=== PATIENT | female | born 1990 | race Caucasian/White ===

== ENCOUNTER 2018-01-06 08:44 | Emergency (ER) | payer SELFPAY ==
[2018-01-06 08:45] VITALS: BP 111/75; PULSE 116; RESP 16; TEMP 36.2; O2SAT 97; BMI 26.0
--- NOTE | 2018-01-06 08:59 | ED.DCSUM_ITS ---
- ER Visit Summary Date of Service: 01/06/18 Chief Complaint: Abdominal pain History of Present Illness: The patient is a 27 F who presents with abdominal pain. Started 4 hours ago suddenly. She states she has sharp pains in her left lower quadrant that radiates up into her back. She has had nausea without vomiting. She denies diarrhea or constipation. Denies any urinary symptoms. Never had any abdominal surgeries before in the past. No fevers. She took nothing for this at home Physical Examination: Vital signs reviewed. HEENT exam unremarkable. Heart is regular rate and rhythm without murmurs. Lungs are clear to auscultation. Abdomen is soft with diffuse tenderness. No guarding or rebound tenderness. Extremities reveal no edema. Skin exam normal. Neurologic exam normal. Test Results: Labs are normal except for a white blood cell count of 12.7 Emergency Department Course and Treatment: Patient was initially given morphine and Zofran IV. She states that this is not helping. I attempted to get CAT scans of her abdomen but patient refused. She states that she cannot lay down and she cannot fucking do it. I informed her that to fully complete her evaluation these CAT scans may be necessary. She states that she still cannot and refused to do it. However, her blood work looks pretty unremarkable. I will give her Bentyl IM because she is still complaining of pain. The patient denies using any illicit drugs but the patient does have track sanders on her arms and neck. She was seen here previously for an overdose. This may make getting her pain controlled harder. At this point I will discharge the patient with Bentyl and Phenergan. She will follow-up with her PCP Treatment Plan: [] Disposition: Discharge Impression: Abdominal pain This note was generated with [employer] dictation software. It may contain incorrect words, spelling, and punctuation that were not noted in review of the chart prior to signing ED Disposition - Plan for ED Patient: Chief Complaint: Abd Pain Referrals: Care Physician,No Primary [Primary Care Provider] -
[2018-01-06] MEDS: 0.9% Normal Saline 1,000 ML 1000 ML IV (09:09)
[2018-01-06] MEDS: Ondansetron 4 MG/2 ML Vial IV (09:09)
[2018-01-06] MEDS: Morphine 4 MG/ML Syringe IV (09:09)
[2018-01-06 09:31] LABS: Absolute Lymphocyte Count 3.07 X10^3/ul (0.83-4.51); Absolute Neutrophil Count 8.4 X10^3/uL (2.0-7.7); Basophil# 0.07 X10^3/uL; Basophil% 0.6 % (0-1); Eosinophil# 0.25 X10^3/uL; Hematocrit 40.1 % (37-47); Lymphocyte # 3.07 X10^3/ul (4.0); Lymphocyte % 24.2 % (19-41); Mean Corp Hgb Conc 32.4 g/gl (32-36); Mean Corpuscular Hgb 27.2 pg (27.0-32.0); Mean Corpuscular Volume 83.9 fL (81-99); Mean Platelet Vol. 10.5 fl (6.2-12.0); Monocyte# 0.93 X10^3/uL; Monocyte% 7.3 % (0-10); Neutrophil # 8.36 X10^3/uL (2.7-7.7); Neutrophil % 65.7 % (47-70); Platelet Count 339 K/mm3 (150-450); RBC Distribution Width CV 12.8 % (11.6-14.6); RBC Distribution Width SD 38.9 fl (35.1-43.9); Red Blood Count 4.78 M/mm3 (4.2-5.4); White Blood Count 12.7 K/mm3 (4.4-11.0)
[2018-01-06 09:36] LABS: POSITIVE COUNT NO; POSITIVE DIFFERENTIAL NO; POSITIVE MORPHOLOGY NO
[2018-01-06 09:41] LABS: AST(SGOT) 14 U/L (15-37); Alanine Aminotransfer ALT/SGPT 20 U/L (13-56); Albumin, Serum 3.8 g/dL (3.2-5.0); Alkaline Phosphatase 78 U/L (45-117); Anion Gap 4 (5-15); BUN 12 mg/dL (7-18); BUN/Creat Ratio 16.6 RATIO (10-20); Calcium,Total 8.8 mg/dL (8.5-10.1); Chloride 104 mmol/L (98-107); Creatinine, Serum 0.72 mg/dL (0.55-1.02); EST Glomerular Filtration Rate 102 mL/min (>60); Est Glom Filt Rate - Afr Amer 124 mL/min (>60); Estimated Creatinine Clearance 97.09 ml/min; Globulin 3.9 g/dL (2.2-4.2); Glucose 105 mg/dL (74-106); Lipase 71 U/L (73-393); Potassium 3.6 mmol/L (3.5-5.1); Protein, Total 7.7 g/dL (6.4-8.2); Sodium Level 139 mmol/L (136-145)
[2018-01-06 10:03] LABS: Bacteria 0 SEEN /hpf (None Seen); Red Blood Cells-Urine 0 SEEN /hpf (0-5)
[2018-01-06 10:10] LABS: Internal QC Validated? YES +Cl - CLEAR BKGD; Pregnancy, Urine Negative Negative
[2018-01-06 10:26] LABS: Color, Urine Yellow (Yellow); Glucose, Dipstick Normal (Normal); Ketone-Dipstick 5 mg/dl (Negative); Leukocyte Esterase-Dipstick 25 /ul (Negative); Nitrite-Dipstick Negative (Negative); Occult Blood-Urine 10 /ul (Negative); Protein-Dipstick 15 mg/dl (Negative); Urine Bilirubin Dipstick Negative (Negative); Urine Clarity Clear (Clear); Urine Urobilinogen Normal (Normal)
[2018-01-06 10:32] LABS: Mucous, Urine 2+ /hpf (<or=2+); Squamous Epithelial Cells - UA 0-5 SEEN /hpf (5-10); White Blood Cells 0-5 SEEN /hpf (0-5)
--- NOTE | 2018-01-06 10:38 | ED.DEP ---
ED Disposition - Plan for ED Patient: Disposition: Home or Assisted Living Chief Complaint: Abd Pain Instructions: ED Abdominal Pain Unkn Cause Prescriptions: proMETHazine tablet [Phenergan] 25 mg PO Q6H PRN PRN #10 tab PRN Reason: Nausea Dicyclomine HCl [Bentyl] 20 mg PO TIDAC #20 cap Referrals: Care Physician,No Primary [Primary Care Provider] -
[2018-01-06] MEDS: Dicyclomine 20 MG/2 ML Vial IM (10:49)
[2018-01-06 10:57] VITALS: BP 107/57; PULSE 64; RESP 18; O2SAT 99
--- NOTE | 2018-01-06 10:59 | ED.RN ---
PT REFUSED CT, STATES NO FUCKING WAY I'M GONG TO DO THIS BUT WAS ABLE TO AMBULATE FROM BED TO SCANNER, AND BACK TO BED WITHOUT DIFFICULTLY, PER SHAHID. EACH TIME THIS NURSE WALKED IN THE ROOM, PT WAS RESTING COMFORTABLY WITHOUT DISTRESS. PT NEVER VOICED TO THIS NURSE OR TO THE DOCTOR THAT HER LADY CELY WAS BOTHERING HER, WHICH SHE COMPLAINED ABOUT UPON DISCHARGE. PT WAS RUDE AND DEMANDING TO STAFF, CUSSING AT STAFF AND CALLED THIS RN A BITCH. ADVISED PT THAT WE COULD NOT DIAGNOSE HER WITHOUT A CT SCAN. PT STILL REFUSED TO GO TO CT. MEDICATED PT WITH BENTYL. GAVE PT DISCHARGE INSTRUCTIONS. PT AMBULATED WITHOUT DIFFICULTY OUT OF DEPARTMENT. CALLED PT'S SISTER FOR RIDE HOME.
[2018-01-06 11:05] VITALS: BP 107/57; PULSE 64; RESP 18; O2SAT 99
== END 2018-01-06 11:05 | disposition home or self-care (01) ==
PROVIDERS: Emergency Provider Emergency Medicine
DX: R10.9 Unspecified abdominal pain (principal); R11.0 Nausea; Z72.0 Tobacco use
CPT/HCPCS: 80053; 81001; 81025; 83690; 85025; 96361; 96372; 96374; 96375; 99284; J7030; J2405

== ENCOUNTER 2018-06-22 23:08 | Emergency (ER) | payer MEDICAID, SELFPAY ==
[2018-06-22 23:09] VITALS: BP 107/75; PULSE 125; RESP 20; TEMP 36.9; O2SAT 100; BMI 25.7
--- NOTE | 2018-06-22 23:26 | ED.RN ---
PT WALKED OUT OF THE ROOM AFTER DR MILLER LEFT THE ROOM.
--- NOTE | 2018-06-22 23:30 | ED.DCSUM_ITS ---
- ER Visit Summary Date of Service: 06/22/18 Chief Complaint: Rash History of Present Illness: The patient is a 28 F who presents with a rash. It is been present for months. States she has [place] tree mites. She has noticed an itching rash with red scabbed lesions particularly over the backs of both hands as well as her face. She states that over the last couple of months she is intermittently had vomiting and subjective fevers no documented fever. She denies any current chest pain shortness of breath nausea. She does admit to methamphetamine use. Physical Examination: Heart rate 125 vitals otherwise normal Patient has increased motor activity shifting often in bed picking at her hands Heart is regular rhythm tachycardia Lungs are clear Abdomen soft She has a rash which appears consistent with to her face chest and the backs of both hands with some open wounds and scabbed lesions. No petechiae no purpura no cellulitis Test Results: Not indicated Emergency Department Course and Treatment: I do not believe her rash is consistent with a parasitic infection. I believe this is more likely related to skin picking related to formication with methamphetamine abuse. She was counseled on cessation. She was also advised on supportive care should this be mites including histamines and topical hydrocortisone although I feel this is less likely. She requested testing to see if this was mites. I explained that this is not something I would be able to do here or have available. Patient discharged. Treatment Plan: [] Disposition: Discharge Impression: Methamphetamine abuse Bilateral hand wounds Rash This note was generated with [employer] dictation software. It may contain incorrect words, spelling, and punctuation that were not noted in review of the chart prior to signing ED Disposition - Plan for ED Patient: Chief Complaint: Itching Referrals: Care Physician,No Primary [Primary Care Provider] -
--- NOTE | 2018-06-22 23:30 | ED.DEP ---
ED Disposition - Plan for ED Patient: Chief Complaint: Itching Instructions: ED Drug Abuse General Referrals: Care Physician,No Primary [Primary Care Provider] -
--- OUTSIDE RECORDS SUMMARY | 2018-08-27 08:53 | XMS RPT_ITS ---
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 [facility] [id number] Number: [address] [id number], [place] [id number] [id number], [place] [address]Tya: (330) Date:2018-06-08 [address]Obt: (HP) [id number] Name:X[address] (HP)Tel: [phone]) [address], [place] [address] (WP) [phone]: 02/14/2018 [facility]: [facility] MEDICAIDPolicy [id number] Repository [address] Number: [address] [id number], [place] [id number] [id number], [place] [address]Amw: (330) Date:2018-01-12 [address]23[address]Zva: (HP) [id number] Name:[address] (HP)Tel: [phone]) [address], [place] [address] (WP) [phone]: 01/12/2018 [facility]:MEDICAID OF [place]DOB: [facility] Number: [id number] [id number] [id number], [place] Date:2018-01-12 - EAS14[place], [place] [address]Sck: [phone] [phone]: (HP) Name:ZE [phone] [address]Jqcfbchw, [place] ()Tel: [phone]: (WP) [phone] 01/08/2018 LACY D Primary [facility] MEDICAIDPolicy [id number] Number: [address] [id number], [place] [id number] [id number] [place] [address]Ees: (330) Date:2016-12-17 4[address]Jkb: (HP) [id number] 2014 Name:JUANO Box ()Tel: [phone], [place] [address] (WP) [phone]: 01/06/2018 Lacy D Primary NOT GIVEN[address] Insurance:SELF PAY Hospital Main INSURANCEPolicy Repository [facility], Number: [place] [address]Xxe: Date:2018-01-06 (HP) 11/22/2017 LACY D Primary LACY D [place] [address] Insurance:MEDICAID BENTLEYDOB: [facility] [id number] Center Repository [place], [place] ELIGPolicy Number: [address] [id number]: (374) [id number] [place], [place] [address] () Date: [address]Swq: ()
== END 2018-06-22 23:45 | disposition home or self-care (01) ==
LOC: ED 23:42
PROVIDERS: Emergency Provider Emergency Medicine
DX: R21 Rash and other nonspecific skin eruption (principal); F15.90 Other stimulant use, unspecified, uncomplicated; Z86.19 Personal history of other infectious and parasitic diseases
CPT/HCPCS: 99281

== ENCOUNTER 2018-11-30 22:37 | Emergency (ER) | payer MEDICAID, SELFPAY ==
[2018-11-30 22:37] VITALS: BP 103/63; PULSE 103; RESP 18; TEMP 36.2; O2SAT 100; BMI 26.5
[2018-11-30 23:06] LABS: Mucous, Urine 0 SEEN /hpf (<or=2+); Red Blood Cells-Urine 0 SEEN /hpf (0-5); Squamous Epithelial Cells - UA 0 SEEN /hpf (5-10)
[2018-11-30 23:10] LABS: Color, Urine Yellow (Yellow); Glucose, Dipstick Normal (Normal); Ketone-Dipstick 5 mg/dl (Negative); Leukocyte Esterase-Dipstick 500 /ul (Negative); Nitrite-Dipstick Positive (Negative); Occult Blood-Urine 150 /ul (Negative); Protein-Dipstick 100 mg/dl (Negative); Specific Gravity, Urine 1.025 (1.002-1.030); Urine Clarity Cloudy (Clear); Urine Urobilinogen 1 mg/dl (Normal)
[2018-11-30 23:11] LABS: Urine Bilirubin Dipstick 1 mg/dL (Negative)
[2018-11-30 23:17] LABS: White Blood Cells >100 SEEN /hpf (0-5)
[2018-11-30 23:18] LABS: Bacteria 3+ /hpf (None Seen)
[2018-11-30 23:30] LABS: Internal QC Validated? YES +Cl - CLEAR BKGD; Pregnancy, Urine Negative Negative
--- NOTE | 2018-11-30 23:37 | ED.DCSUM_ITS ---
- ER Visit Summary Date of Service: 11/30/18 Chief Complaint: Dysuria, left ear pain History of Present Illness: The patient is a 28 F who has dysuria and left ear pain. Started 2 weeks ago. She has UTIs about twice a year and this feels like another one. No fevers or abdominal pain. She has pain in the left ear as well. She has noted some drainage coming from it as well. Physical Examination: Vital signs reviewed. HEENT exam reveals TMs are clear bilaterally. The left canal is red and swollen. Heart is regular. Lungs are clear. Abdomen soft. Neurologic exam normal. Test Results: Urine shows a UTI. hCG negative Emergency Department Course and Treatment: The patient does have evidence of external otitis. He will be treated with Cortisporin. Bactrim for UTI. Follow-up with PCP Treatment Plan: [] Disposition: Discharge Impression: UTI, left external otitis This note was generated with [employer] dictation software. It may contain incorrect words, spelling, and punctuation that were not noted in review of the chart prior to signing ED Disposition - Plan for ED Patient: Referrals: Care Physician,No Primary [Primary Care Provider] -
--- NOTE | 2018-11-30 23:38 | ED.DEP ---
ED Disposition - Plan for ED Patient: Disposition: Home or Assisted Living Instructions: Bladder Infection, Female (Adult) Prescriptions: Smz/Tmp Ds [Bactrim Ds] 1 tab PO BID #14 tab Prescription Printed Neomycin/Polymyxin B/Hydrocort [Tildplgt-Zatunnvin-Zt Ear Susp] 4 drp OT TID #100 drops.susp Prescription Printed Referrals: Care Physician,No Primary [Primary Care Provider] -
[2018-11-30] MEDS: Smz/Tmp Ds Tablet 1 TABLET PO (23:40)
== END 2018-11-30 23:44 | disposition home or self-care (01) ==
PROVIDERS: Emergency Provider Emergency Medicine
DX: N39.0 Urinary tract infection, site not specified (principal); H60.92 Unspecified otitis externa, left ear; Z72.0 Tobacco use
CPT/HCPCS: 81001; 81025; 87086; 87088; 87186; 99283

== ENCOUNTER 2019-10-11 01:11 | Emergency (ER) | payer MEDICAID, SELFPAY ==
[2019-10-11 01:16] VITALS: BP 93/76; PULSE 109; RESP 19; TEMP 36.8; O2SAT 98; BMI 29.8
[2019-10-11 01:33] LABS: Mucous, Urine 0 SEEN /hpf (<or=2+)
[2019-10-11 01:35] LABS: Color, Urine Yellow (Yellow); Glucose, Dipstick Normal (Normal); Ketone-Dipstick 5 mg/dl (Negative); Leukocyte Esterase-Dipstick 100 /ul (Negative); Nitrite-Dipstick Positive (Negative); Occult Blood-Urine 25 /ul (Negative); Protein-Dipstick 30 mg/dl (Negative); Urine Bilirubin Dipstick Negative (Negative); Urine Clarity Cloudy (Clear); Urine Urobilinogen 1 mg/dl (Normal)
[2019-10-11 01:36] LABS: Internal QC Validated? YES +Cl - CLEAR BKGD; Pregnancy, Urine Negative Negative
[2019-10-11 01:42] LABS: Bacteria 4+ /hpf (None Seen); Red Blood Cells-Urine 5-10 SEEN /hpf (0-5); Squamous Epithelial Cells - UA 10-25 SEEN /hpf (5-10); White Blood Cells 10-25 SEEN /hpf (0-5)
--- NOTE | 2019-10-11 01:52 | ED.VIS.GEN ---
History of Present Illness Chief Complaint: Complaint Informant: Patient Narrative: Patient states that several days ago she had unprotected intercourse with a new partner. She states that now she has developed dysuria a white vaginal discharge and urinary frequency. She denies any fevers or flank pain. No nausea vomiting. Patient is concerned that she has an STD. She does not think she has a UTI. Past Medical History - Allergies and Home Meds Allergies/Adverse Reactions: Allergies No Known Allergies Allergy (Verified 10/11/19 01:12) Primary Care Physician: Care Physician,No Primary [Primary Care Provider] - Smoking Status: Current every day smoker Review of Systems General: Denies: Chills, Fever, Sweats Eyes: Denies: Visual changes - bilaterally, Diplopia ENT: Denies: Rhinorrhea, Sore throat Cardiovascular: Denies: Chest pain, Palpitations Respiratory: Denies: Dyspnea, Cough, Dyspnea on exertion Gastrointestinal: Denies: Abdominal pain, Nausea, Vomiting, Diarrhea, Melena, Hematochezia Genitourinary: Reports: Dysuria, - - White vaginal discharge. Denies: Hematuria, Frequency Musculoskeletal: Denies: Back pain, Extremity Pain Skin: Denies: Rash, Wounds Neurological: Denies: Headache, Weakness, Numbness Physical Exam Vital Signs/Narrative: Vital Signs Temp Pulse Resp BP Pulse Ox 10/11/19 01:16 98.2 F 109 H 19 H 93/76 98 Inital Vital Signs reviewed: Yes General: Well nourished, Well developed, No Acute Distress Head: Normocephalic, Atraumatic Eyes: Perrl, EOMI ENT: Moist mucous membranes, No rhinorrhea Neck: Supple, Nontender Cardiovascular: Regular rate, Regular rhythm, No murmurs Respiratory: No distress, CTA bilaterally, Chest nontender Abdomen: Soft, Nontender, Nondistended, Normal bowel sounds Back: Nontender, Normal Inspection Extremities: Nontender, No edema Skin: Normal color, No rash Neurological: Alert, Oriented x3, Cranial nerves II-XII grossly intact, Normal Strength, Normal Sensation Psychological: Normal affect, Normal Mood Diagnostic/Tx/Re-eval - Medical Decision Making Urinalysis 10-25 white cells 10-25 epithelial cells. 4+ bacteria but positive nitrates. test is negative. Patient most likely has a UTI. Her GC and Chlamydia will be pending for some time. Patient would like to be treated and discharged. Therefore she will be given Rocephin and azithromycin. She may follow-up on the results as an outpatient. All muscle in her right for her to have a 5-day course of nitrofurantoin and Pyridium. ED Disposition - Plan for ED Patient: Disposition: Home or Assisted Living Diagnosis: Acute cystitis, Exposure to STD Instructions: ED CYSTITIS Female Adult Prescriptions: Nitrofurantoin Macrocrystals [Macrobid] 100 mg PO Q12 #10 cap Transmission Status: Pending to [facility] Phenazopyridine HCl [Pyridium] 100 mg PO TID #6 tab Transmission Status: Pending to [facility] Referrals: Chris Giles MD [STAFF PHYSICIAN] - (for gynecology if you wish to follow up with FIELD SUPPORT REPRESENTATIVE) Additional Instructions: I highly recommend that you follow-up with the [facility] for further STD check such as syphilis and HIV.
[2019-10-11 01:57] VITALS: BP 93/76; PULSE 100; RESP 18; O2SAT 98
[2019-10-11] MEDS: Azithromycin 250 MG Tablet 1000 MG PO (02:12)
[2019-10-11] MEDS: Ceftriaxone 500 MG Vial 250 MG IM (02:12)
[2019-10-11 03:27] LABS: Chlamydia Trachomatis by PCR Negative (Negative); Neisserai gonorrhoeae by PCR Negative (Negative); Probe Check PASS; Sample Adequacy Control PASS; Specimen Processing Control PASS
== END 2019-10-11 02:48 | disposition home or self-care (01) ==
PROVIDERS: Emergency Provider Emergency Medicine
DX: N30.00 Acute cystitis without hematuria (principal); Z20.2 Contact with and (suspected) exposure to infections with a predominantly sexual mode of transmission; F17.200 Nicotine dependence, unspecified, uncomplicated
CPT/HCPCS: 81001; 81025; 87491; 87591; 96372; 99283